=== PATIENT | female | born 1975 | race Caucasian/White ===

== ENCOUNTER → 2017-02-14 | Emergency (ER) | payer SELFPAY ==
[~2017-02-14] MED LIST: ASPIR 8181 MG PO; MOTRIN800 MG PO; PRENATAL 1+1)(P1 TAB PO; ZYRTEC10 MG PO
== END | disposition disaster alternative care site (69) ==
LOC: GAMB 18:13
DX: R06.4 Hyperventilation (principal); F41.0 Panic disorder [episodic paroxysmal anxiety]